=== PATIENT | male | born 1975 ===

== ENCOUNTER 2021-08-13 17:46 | Emergency (ER) | payer OTHER ==
[~2021-08-13] VITALS: Ht 182.9 cm; Wt 99.8 kg
[2021-08-13 22:02] VITALS: BP 159/96
== END 2021-08-13 22:15 | disposition home or self-care (01) ==
LOC: ER 17:46
DX: S23.41XA Sprain of ribs, initial encounter (principal); W51.XXXA Accidental striking against or bumped into by another person, initial encounter; Y93.71 Activity, boxing; Y92.89 Other specified places as the place of occurrence of the external cause; Y99.8 Other external cause status
CPT/HCPCS: 71101